=== PATIENT | female | born 1990 | race Two or more races ===

== ENCOUNTER 2018-12-08 16:07 | Emergency (ER) | payer MEDICAID, OTHER ==
[~2018-12-08] VITALS: Ht 172.7 cm; Wt 115.7 kg
[2018-12-08 17:14] LABS: Basophils # (auto) 0 uL; Basophils % (auto) 0.4 % (0.0-2.0); Eosinophils # (auto) 0.1 uL; Eosinophils % (auto) 0.8 % (0.0-7.0); Hematocrit 45.2 % (36.0-46.0); Hemoglobin 15.3 g/dL (12.2-16.2); Lymphocytes # (auto) 2.1 uL; Mean Corpuscular Hemoglobin 30.8 pg (28.0-32.0); Mean Corpuscular Hgb Conc. 33.7 g/dL (32.0-36.0); Mean Corpuscular Volume 91.5 fL (80.0-100.0); Monocytes # (auto) 0.6 uL; Monocytes % (auto) 7.3 % (0.0-12.0); Neutrophils # (auto) 5.3 uL; Neutrophils % (auto) 65.5 % (37.0-80.0); Nucleated Red Blood Cells % 0.1 %; Platelet Count (auto) 340 10^3/uL (140-450); Red Blood Cells 4.94 10^6/uL (4.0-5.20); Red Cell Distribution Width 13.2 % (11.8-14.3); White Blood Cell 8.2 10^3/uL (4.4-10.8)
[2018-12-08 17:16] LABS: Urine Bacteria FEW /hpf (None Seen); Urine Blood Negative /uL (Negative); Urine Specific Gravity 1.029 (1.001-1.035); Urine WBC 6 /hpf (0 - 5)
[2018-12-08 17:26] LABS: Albumin 4.1 g/dL (3.4-5.0); BUN/Creatinine Ratio 13.2; Calcium 9.4 mg/dL (8.5-10.1)
[2018-12-08 17:28] LABS: Bilirubin, Total 0.3 mg/dL (0.2-1.0)
[2018-12-08 20:16] VITALS: BP 142/80
== END 2018-12-08 22:47 | disposition home or self-care (01) ==
LOC: ER 16:07
DX: N39.0 Urinary tract infection, site not specified (principal); F17.210 Nicotine dependence, cigarettes, uncomplicated; F12.10 Cannabis abuse, uncomplicated
CPT/HCPCS: 36415; 80053; 81001; 81025; 83690; 85025